=== PATIENT | male | born 1965 | race Caucasian/White ===

== ENCOUNTER 2020-02-24 09:21 | Day surgery (SDC) | payer BC ==
[~2020-02-24 09:21] MED LIST: Lactated Ringers 1,000 ML IV SCH
[2020-02-24] MEDS ORDERED: fentaNYL 100 MCG/2 ML SDV ONE (10:07)
[2020-02-24] MEDS ORDERED: Propofol 200 MG/20 ML SDV ONE ×2 (10:07→10:24)
[2020-02-24] MEDS ORDERED: Ondansetron 4 MG/2 ML SDV ONE (10:12)
[2020-02-24 11:16] VITALS: BP 123/74; PULSE 60
--- NOTE | 2020-02-24 12:30 | OR ---
DATE OF SURGERY: 02/24/2020. REFERRING PROVIDER: Gayle Adame DO PRE-OPERATIVE DIAGNOSIS: History of colon polyps. Last colonoscopy was about 5 years ago. There is no known family history of colon cancer or colon polyps. POST-OPERATIVE DIAGNOSES: 1. A 2 mm polyp at 30 cm, removed with cold forceps. 2. Minimal left-sided diverticulosis. 3. Normal-appearing distal ileum. PROCEDURE: Colonoscopy with polypectomy x1 using cold forceps. SURGEON: Leonel Almonte M.D. ANESTHESIA: Monitored anesthesia care. BOWEL PREP: Good. Jose is a 54-year-old male who was brought to the endoscopy suite after discussing risks and benefits of the procedure. Informed consent was obtained for conscious sedation and colonoscopy with or without biopsy and/or polypectomy. We also discussed possibility of missed lesions. Pre-procedure exam was unremarkable. IV, oxygen, and monitors were placed. The patient was placed in the left lateral decubitus position. Sedation was administered and a digital rectal exam was performed and unremarkable. Colonoscope was passed into the rectum and slowly advanced all the way to the cecum. Cecum was viewed and photographed. The ileocecal valve was intubated and distal ileum was normal in appearance. The colonoscope was slowly withdrawn and the mucosa was closed observed in a direct circumferential manner. The ascending colon was unremarkable. The transverse colon was unremarkable. The descending and sigmoid colon revealed some minimal diverticulosis. Sigmoid colon also revealed 2 mm polyp at 30 cm, removed using cold forceps. Retroflexion was performed and rectal mucosa was unremarkable. Scope was removed. The patient tolerated the procedure well. The patient was monitored until that baseline status. Discharge instructions were reviewed and the patient was discharged in good condition. COMPLICATIONS: None. TOTAL TIME: 20 minutes. ESTIMATED BLOOD LOSS: Less than 1 mL. RECOMMENDATIONS/FOLLOW-UP: We will await results of path report to determine ideal followup interval. The patient can go ahead and resume his aspirin and Plavix tomorrow. I would like to kindly thank Gayle Adame for this referral. DMB: 02/24/2020 11:24:19 MODL: 02/24/2020 11:55:44 /[id number]
== END 2020-02-24 11:56 | disposition home or self-care (01) ==
LOC: VM.SDS 09:21
PROVIDERS: ATTEND Family Medicine
DX: Z12.11 Encounter for screening for malignant neoplasm of colon (principal); K63.5 Polyp of colon; K57.30 Diverticulosis of large intestine without perforation or abscess without bleeding; K21.9 Gastro-esophageal reflux disease without esophagitis; I25.10 Atherosclerotic heart disease of native coronary artery without angina pectoris; I10 Essential (primary) hypertension; M45.9 Ankylosing spondylitis of unspecified sites in spine; R53.83 Other fatigue; H60.42 Cholesteatoma of left external ear; Z86.010 Personal history of colon polyps; Z79.899 Other long term (current) drug therapy; Z88.8 Allergy status to other drugs, medicaments and biological substances; Z87.891 Personal history of nicotine dependence
CPT/HCPCS: 00811; 45380; J2405; J2704; J3010; J7120

== ENCOUNTER 2022-05-09 08:34 | Emergency (ER) | payer BC ==
[2022-05-09] MEDS: Aspirin 81 MG Tab.Chew PO ONE (09:05)
[2022-05-09] MEDS: Aspirin 81 MG Tab.Chew ONE (09:15)
[2022-05-09 09:24] LABS: ANION GAP 12.8 mmol/L (5-15); CHLORIDE,CL 107 mmol/L (98-107); ESTIMATED GFR 100 mL/min (>=60); SODIUM,NA 141 mmol/L (136-145)
[2022-05-09 12:03] VITALS: BP 115/88; PULSE 64
== END 2022-05-09 11:55 | disposition home or self-care (01) ==
LOC: SUPCPDRO 08:34 → VM.ED 08:34
DX: I48.92 Unspecified atrial flutter (principal); I25.10 Atherosclerotic heart disease of native coronary artery without angina pectoris; E78.00 Pure hypercholesterolemia, unspecified; I27.20 Pulmonary hypertension, unspecified; K21.9 Gastro-esophageal reflux disease without esophagitis; Z88.8 Allergy status to other drugs, medicaments and biological substances; Z79.82 Long term (current) use of aspirin; Z79.01 Long term (current) use of anticoagulants; Z79.899 Other long term (current) drug therapy
CPT/HCPCS: 71046; 80053; 83690; 84484; 85025; 85610; 93005; 93010; 99284; 99285; A9270-GY

== ENCOUNTER 2022-11-05 16:25 | Emergency (ER) | payer BC ==
[2022-11-05 16:59] LABS: BASOPHILS PERCENT AUTO 0.2 % (0.2-1.2); EOSINOPHILS ABSOLUTE AUTO 0.1 x10^3/uL (0.0-0.5); EOSINOPHILS PERCENT AUTO 0.9 % (0.0-4.0); HEMOGLOBIN 16.1 g/dL (14.0-18.0); IMMATURE GRAN ABSOLUTE AUTO 0.05 x10^3/uL (0.00-0.07); LYMPHOCYTES ABSOLUTE AUTO 2.7 x10^3/uL (1.0-4.8); LYMPHOCYTES PERCENT AUTO 30.2 % (25.0-50.0); MEAN CORPUSCULAR HEMOGLOBIN 32.5 pg (26.0-32.0); MEAN CORPUSCULAR HGB CONC 35.8 g/dL (32.0-36.0); MEAN CORPUSCULAR VOLUME 90.7 fL (78.0-93.0); MONOCYTES ABSOLUTE AUTO 1.4 x10^3/uL (0.0-0.8); MONOCYTES PERCENT AUTO 15.6 % (2.0-11.0); NEUTROPHILS ABSOLUTE AUTO 4.7 x10^3/uL (1.8-7.7); NEUTROPHILS PERCENT AUTO 52.5 % (50.0-80.0); PLATELET COUNT,PLT 205 x10^3/uL (130-400); RED BLOOD CELL COUNT 4.96 x10^6/uL (4.5-6.0); WHITE BLOOD CELL COUNT,WBC 8.9 x10^3/uL (4.0-10.0)
[2022-11-05 17:18] LABS: ALANINE AMINOTRANSFERASE,ALT 39 U/L (16-63); ALBUMIN 3.6 g/dL (3.4-5.0); ALKALINE PHOSPHATASE 97 U/L (46-116); ASPARTATE AMNIOTRANSFERASE,AST 20 U/L (15-37); BILIRUBIN TOTAL 0.4 mg/dL (0.2-1.0); BLOOD UREA NITROGEN,BUN 17 mg/dL (7-18); CALCIUM 9.1 mg/dL (8.5-10.1); CARBON DIOXIDE,CO2 28 mmol/L (21-32); CHLORIDE,CL 106 mmol/L (98-107); GLUCOSE RANDOM 110 mg/dL (70-99); PROTEIN TOTAL,TP 7.2 g/dL (6.4-8.2); SODIUM,NA 143 mmol/L (136-145)
[2022-11-05 17:19] LABS: ESTIMATED GFR 87 mL/min (>=60)
[2022-11-05] MEDS: Amoxicillin 500 MG Cap PO ONE (17:59)
[2022-11-05 18:14] VITALS: BP 128/84; PULSE 96
== END 2022-11-05 18:06 | disposition home or self-care (01) ==
LOC: VM.ED 16:25
DX: M54.6 Pain in thoracic spine (principal); H66.91 Otitis media, unspecified, right ear; I48.91 Unspecified atrial fibrillation; I10 Essential (primary) hypertension; E78.00 Pure hypercholesterolemia, unspecified; I25.10 Atherosclerotic heart disease of native coronary artery without angina pectoris; K21.9 Gastro-esophageal reflux disease without esophagitis; Z79.899 Other long term (current) drug therapy; Z79.82 Long term (current) use of aspirin; Z79.01 Long term (current) use of anticoagulants; Z87.891 Personal history of nicotine dependence; Z88.2 Allergy status to sulfonamides; Z88.6 Allergy status to analgesic agent; Z88.8 Allergy status to other drugs, medicaments and biological substances
CPT/HCPCS: 36415; 71046; 80053; 84484; 85025; 93005; 93010; 99284; A9270-GY